=== PATIENT | female | born 1960 | race Two or more races ===

== ENCOUNTER 2018-11-14 08:09 | Outpatient (CLI) | payer OTHER | END 2018-11-14 10:06 | disposition home or self-care (01) | LOC: LAB 08:09 | DX: R10.2 Pelvic and perineal pain (principal); N91.1 Secondary amenorrhea ==

== ENCOUNTER 2018-11-14 16:01 | Outpatient (CLI) | payer OTHER | END 2018-11-14 16:44 | disposition home or self-care (01) | LOC: RAD 16:01 | DX: N60.12 Diffuse cystic mastopathy of left breast (principal); N60.11 Diffuse cystic mastopathy of right breast; R05 Cough ==

== ENCOUNTER 2018-11-17 09:47 | Outpatient (CLI) | payer OTHER | END 2018-11-17 09:52 | disposition home or self-care (01) | LOC: TOM 09:47 | DX: R10.9 Unspecified abdominal pain (principal) ==

== ENCOUNTER 2018-11-20 07:18 | Outpatient (CLI) | payer OTHER | END 2018-11-20 13:24 | disposition home or self-care (01) | LOC: LAB 07:18 | DX: Z51.81 Encounter for therapeutic drug level monitoring (principal) ==

== ENCOUNTER 2018-12-01 08:15 | Outpatient (CLI) | payer OTHER | END 2018-12-01 08:36 | disposition home or self-care (01) | LOC: MRI 08:15 | DX: C54.1 Malignant neoplasm of endometrium (principal); M17.0 Bilateral primary osteoarthritis of knee | CPT/HCPCS: 72196 ==

== ENCOUNTER → 2019-01-12 | Outpatient (CLI) | payer OTHER ==
[~2019-01-12] MED LIST: AMLODIPINE PO; ATORVASTATIN CA10 MG PO; CANDESARTAN CIL32 MG PO; CARDESARTAN PO; CLONIDINE HCL0.1 M1 PO; COQ-1030 MG PO; FORTAMET500 MG PO; HYDROCHLOROTHIA25 MG PO; LABETALOL HCL200 MG PO; LABETALOL200 MG/200 PO; NORVASC2.5 MG PO; VITATRUE COMBO1 EACH PO; [UNRECOGNIZED DRUG - OTHER] PO; [UNRECOGNIZED DRUG - OTHER] PO
== END | disposition home or self-care (01) ==
LOC: NUCLEAR 07:00
DX: I20.8 Other forms of angina pectoris (principal)
CPT/HCPCS: 78452; 93017; A9500; J0153

== ENCOUNTER 2019-01-23 07:15 | Inpatient (IN) | payer OTHER ==
[~2019-01-23] VITALS: Ht 170.2 cm; Wt 101.2 kg
[2019-01-23] MEDS ORDERED: CLONIDINE HCL0.1 M1 PO (08:27)
[2019-01-23] MEDS ORDERED: LABETALOL200 MG/200 PO (08:28)
[2019-01-23] MEDS ORDERED: CARDESARTAN PO (08:28)
[2019-01-23] MEDS ORDERED: [UNRECOGNIZED DRUG - OTHER] PO (08:29)
[2019-01-23] MEDS ORDERED: AMLODIPINE PO (08:29)
[2019-01-23] MEDS ORDERED: COQ-1030 MG PO (08:30)
[2019-01-23] MEDS ORDERED: [UNRECOGNIZED DRUG - OTHER] PO (08:30)
[2019-01-23] MEDS ORDERED: VITATRUE COMBO1 EACH PO (08:31)
[2019-01-23] MEDS ORDERED: LABETALOL HCL200 MG PO (10:37)
[2019-01-23] MEDS ORDERED: FORTAMET500 MG PO (10:39)
[2019-01-25] MEDS ORDERED: CANDESARTAN CIL32 MG PO (10:16)
[2019-01-25] MEDS ORDERED: NORVASC2.5 MG PO (10:19)
[2019-01-25] MEDS ORDERED: HYDROCHLOROTHIA25 MG PO (10:19)
[2019-01-25] MEDS ORDERED: ATORVASTATIN CA10 MG PO (10:25)
[2019-01-26] MEDS ORDERED: COLACE100 MG PO (09:32)
[2019-01-26] MEDS ORDERED: ULTRACET PO (09:32)
== END 2019-01-26 09:55 | DRG 735 ==
LOC: O/R 01-25 06:00 → SURH 01-25 07:15 → OB/GYN 01-25 16:36
PROVIDERS: ADMIT Obstetrics & Gynecology Gynecologic Oncology
PROC: 07TC4ZZ Resection of Pelvis Lymphatic, Percutaneous Endoscopic Approach (ICD-10-PCS; 2019-01-25)
PROC: 0UT74ZZ Resection of Bilateral Fallopian Tubes, Percutaneous Endoscopic Approach (ICD-10-PCS; 2019-01-25)
PROC: 0UT24ZZ Resection of Bilateral Ovaries, Percutaneous Endoscopic Approach (ICD-10-PCS; 2019-01-25)
PROC: 0UT94ZZ Resection of Uterus, Percutaneous Endoscopic Approach (ICD-10-PCS; principal; 2019-01-25 12:30)
DX: D25.1 Intramural leiomyoma of uterus (principal); N85.01 Benign endometrial hyperplasia